=== PATIENT | female | born 1965 | race Caucasian/White ===

== ENCOUNTER 2016-11-21 22:29 | Emergency (ER) | payer OTHER ==
[2016-11-21 22:34] VITALS: BP 163/112; PULSE 106; TEMP 97.8; BMI 23.5
[2016-11-21] MEDS ORDERED: OXYCODONE/APAP 5/325MG COMBO TABLET PO ONE (23:00)
--- NOTE | 2016-11-21 23:01 | PDOC ---
[id number] No Limitations - History of Present Illness Initial Comments: 11/21/16 23:50 The patient is a 51 year old female, with a significant past medical history of hypertension and kidney stones, who presents to the emergency department complaining of left rib pain and left wrist pain s/p mechanical fall 2 days ago. The patient reports she returned from a trip to [place] yesterday. During her trip, she reports she was walking across a marble floor in her hotel, when she slipped and fell. The patient reports she landed on her front anterior left ribs. The patient complains of pain to the left wrist, but states her pain to the left wrist has improved since the fall. She reports the pain to the left anterior rib cage is worsening. She reports her left anterior rib cage pain is exacerbated with movement, deep inspiration, coughing, and sneezing. The patient states she has taken advil with no relief. The patient denies any fever , chills, cough, headache, or dizziness. The patient denies any chest pain, shortness of breath, palpitations, or diaphoresis. The patient denies any abdominal pain, nausea, vomiting, diarrhea, constipation, or changes in urination patterns. The patient denies any sick contacts. Allergies: None reported. Past Surgical History: Appendectomy Social History: Non-smoker. Denies alcohol or drug use. PCP: Dr. Herbert <Сергей Redding - Last Filed: 11/22/16 01:49> - General History Source: Patient <JustoLloyd macedo - Last Filed: 11/22/16 06:37> - General Chief Complaint: Bone Injury Stated Complaint: FALL,INJURY Time Seen by Provider: 11/21/16 22:55 Past History <Сергей Redding - Last Filed: 11/22/16 01:49> - Past Medical History HTN: Yes Kidney Stones: Yes - Surgical History Appendectomy: Yes - Immunization History Immunization Up to Date: Yes - Psycho/Social/Smoking Cessation Hx Suicidal Ideation: No Smoking Status: No Smoking History: Never smoked Have you smoked in the past 12 months: No Number of Cigarettes Smoked Daily: 0 Information on smoking cessation initiated: No Hx Alcohol Use: No Drug/Substance Use Hx: No Substance Use Type: None Hx Substance Use Treatment: No <Lloyd Ordonez - Last Filed: 11/22/16 06:37> - Past Medical History Allergies/Adverse Reactions: Allergies Allergy/AdvReac Type Severity Reaction Status Date / Time No Known Drug Allergies Allergy Verified 11/21/16 22:30 Home Medications: Ambulatory Orders Metoprolol Succinate [Toprol XL -] 100 mg PO DAILY 10/01/15 Amlodipine Besylate 5 mg PO DAILY 10/13/15 Ibuprofen [Motrin] 600 mg PO TID #30 tablet 11/22/16 Oxycodone HCl/Acetaminophen [Percocet 5-325 mg Tablet] 1 - 2 tab PO Q6H #20 tablet MDD 4 11/22/16 Review of Systems - Review of Systems Able to Perform ROS?: Yes Comments:: 11/21/16 23:51 CONSTITUTIONAL: Absent: fever, chills, diaphoresis, generalized weakness, malaise, loss of appetite HEENT: Absent: rhinorrhea, nasal congestion, throat pain, throat swelling, difficulty swallowing, mouth swelling, ear pain, eye pain, visual Changes CARDIOVASCULAR: Absent: chest pain, syncope, palpitations, irregular heart rate, lightheadedness , peripheral edema RESPIRATORY: Absent: cough, shortness of breath, dyspnea with exertion, orthopnea, wheezing, stridor, hemoptysis GASTROINTESTINAL: Absent: abdominal pain, abdominal distension, nausea, vomiting, diarrhea, constipation, melena, hematochezia GENITOURINARY: Absent: dysuria, frequency, urgency, hesitancy, hematuria, flank pain, genital pain MUSCULOSKELETAL: Present: +left wrist pain, +left anterior ribs pain Absent: myalgia, arthralgia, joint swelling SKIN: Absent: rash, itching, pallor HEMATOLOGIC/IMMUNOLOGIC: Absent: easy bleeding, easy bruising, lymphadenopathy, frequent infections ENDOCRINE: Absent: unexplained weight gain, unexplained weight loss, heat intolerance, cold intolerance NEUROLOGIC: Absent: headache, focal weakness or paresthesias, dizziness, unsteady gait, seizure, mental status changes, bladder or bowel incontinence PSYCHIATRIC: Absent: anxiety, depression, suicidal or homicidal ideation, hallucinations. <Сергей Redding - Last Filed: 11/22/16 01:49> *Physical Exam - Vital Signs Last Vital Signs Temp Pulse Resp BP Pulse Ox 97.8 F 106 H 16 163/112 95 11/21/16 22:31 11/21/16 22:31 11/21/16 22:31 11/21/16 22:31 11/21/16 22:31 - Physical Exam Comments: 11/21/16 23:54 GENERAL: Well developed, well nourished. Awake and alert. Mild distress. HEENT: Normocephalic, atraumatic. PERRLA, EOMI. No conjunctival pallor. Sclera are non- icteric. Moist mucous membranes. Oropharynx is clear. NECK: Supple. Full ROM. No JVD. Carotid pulses 2+ and symmetric, without bruits. No thyromegaly. No lymphadenopathy. CARDIOVASCULAR: Regular rate and rhythm. No murmurs, rubs, or gallops. Distal pulses are 2+ and symmetric. PULMONARY: No evidence of respiratory distress. Lungs clear to auscultation bilaterally. No wheezing, rales or rhonchi. ABDOMINAL: Soft. Non-tender. Non-distended. No rebound or guarding. No organomegaly. Normoactive bowel sounds. MUSCULOSKELETAL Normal range of motion at all joints. No CVA tenderness. Tenderness to palpation to the anterior left lower ribs (9-10), but no ecchymosis or swelling. No bony crepitus. No bony deformities. EXTREMITIES: No cyanosis. No clubbing. No edema. No calf tenderness. SKIN: Warm and dry. Normal capillary refill. No rashes. No jaundice. NEUROLOGICAL: Alert, awake, appropriate. Cranial nerves 2-12 intact. No deficits to light touch and temperature in face, upper extremities and lower extremities. No motor deficits in the in face, upper extremities and lower extremities. Normoreflexic in the upper and lower extremities. Normal speech. Toes are down- going bilaterally. Gait is normal without ataxia. PSYCHIATRIC: Cooperative. Good eye contact. Appropriate mood and affect. <Сергей Redding - Last Filed: 11/22/16 01:49> - Vital Signs Last Vital Signs Temp Pulse Resp BP Pulse Ox 97.8 F 106 H 16 163/112 95 11/21/16 22:31 11/21/16 22:31 11/21/16 22:31 11/21/16 22:31 11/21/16 22:31 <Lloyd Ordonez - Last Filed: 11/22/16 06:37> ED Treatment Course - Medications Given in the ED: ED Medications Discontinued Medications Generic Name Dose Route Start Last Admin Trade Name Michelle PRN Reason Stop Dose Admin Oxycodone/Acetaminophen 2 combo 11/21/16 23:00 11/21/16 23:30 Percocet 5/325 - PO 11/21/16 23:01 2 combo ONCE ONE Administration <Сергей Redding - Last Filed: 11/22/16 01:49> Medical Decision Making - Medical Decision Making 11/22/16 01:49 EXAM: X-RAY Chest and left ribs INTERPRETED BY: Dr. Antonio REVIEWED BY: Dr. Ordonez IMPRESSION: Acute fracture left lateral rib 7. Small subjacent radiolucency and thin curvilinear line, question artifact due to pleural thickening versus tiny focal pneumothorax. Consider correlation with chest CT. No pleural effusion or lung contusion. Cardiomediastinal silhouette unremarkable. Discoid atelectasis or scarring left mid and lower lung. <Сергей Redding - Last Filed: 11/22/16 01:49> - Medical Decision Making 11/22/16 01:35 Dr. Ordonez: The scribe's documentation has been prepared under my direction and personally reviewed by me in its entirery. I confirm that the note above accurately reflects all work, treatment, procedures, and medical decision making performed by me. No obvious rib fracture seen on rib series. X-ray sent to radiology stone planer for reevaluation. Regardless patient will be discharged with anti- inflammatories and analgesia. Advised to take good deep breath periodically to avoid any worsening respiratory problems 11/22/16 01:52 Radiology stone planer read xray as fracture to rib 7. pt contacted and made aware <Lloyd Ordonez - Last Filed: 11/22/16 06:37> *DC/Admit/Observation/Transfer - Attestations Scribe Attestion: 11/21/16 23:55 Documentation prepared by Сергей Redding, acting as medical surgery nurse for Lloyd Ordonez DO. <Сергей Redding - Last Filed: 11/22/16 01:49> - Discharge Dispostion Admit: No <Lloyd Ordonez - Last Filed: 11/22/16 06:37> Diagnosis at time of Disposition: Contusion of rib on left side Qualifiers: Encounter type: initial encounter Qualified Code(s): S20.212A - Contusion of left front wall of thorax, initial encounter Left rib fracture Qualifiers: Encounter type: initial encounter Rib fracture type: single rib Fracture type: closed Qualified Code(s): S22.32XA - Fracture of one rib, left side, initial encounter for closed fracture - Discharge Dispostion Disposition: HOME Condition at time of disposition: Stable - Prescriptions Prescriptions: Ibuprofen [Motrin] 600 mg PO TID #30 tablet Oxycodone HCl/Acetaminophen [Percocet 5-325 mg Tablet] 1 - 2 tab PO Q6H #20 tablet MDD 4 - Referrals Referrals: Osman Herbert [Primary Care Provider] - - Patient Instructions Printed Discharge Instructions: DI for Rib Contusion, DI for Rib Fracture Additional Instructions: take medications as directed. Periodically take deep breaths to avoid worsening of your breathing, and particularly developing pneumonia. Return if any, patient's.
[2016-11-21] MEDS ORDERED: OXYCODONE/APAP 5/325MG COMBO TABLET ONE (23:29)
== END 2016-11-22 01:37 | disposition home or self-care (01) ==
LOC: JER 22:29 → JERFT 22:29 → JER 11-22 01:37
DX: S22.32XA Fracture of one rib, left side, initial encounter for closed fracture (principal); S20.212A Contusion of left front wall of thorax, initial encounter; W01.0XXA Fall on same level from slipping, tripping and stumbling without subsequent striking against object, initial encounter; Y93.89 Activity, other specified; Y92.59 Other trade areas as the place of occurrence of the external cause; Y99.8 Other external cause status
CPT/HCPCS: 71101-TC; 99281-25

== ENCOUNTER 2016-11-22 17:26 | Emergency (ER) | payer OTHER ==
[2016-11-22 17:35] VITALS: BP 155/106; PULSE 82; TEMP 98; BMI 23.5
[2016-11-22] MEDS ORDERED: ONDANSETRON *ODT* 4 MG TABLET SL ONE (17:38)
[2016-11-22 18:27] LABS: URINE APPEARANCE CLEAR; URINE BILIRUBIN NEGATIVE (NEGATIVE); URINE COLOR COLORLESS; URINE GLUCOSE (UA) NEGATIVE (NEGATIVE); URINE KETONE NEGATIVE (NEGATIVE); URINE LEUK ESTERASE NEGATIVE (NEGATIVE); URINE NITRITE NEGATIVE (NEGATIVE); URINE PROTEIN NEGATIVE (NEGATIVE); URINE UROBILINOGEN NEGATIVE E.U./dl (0.2-1.0)
[2016-11-22 18:28] LABS: URINE BLOOD 1+ (NEGATIVE)
[2016-11-22] MEDS ORDERED: morphine CARPU-JECT 2 MG/1 ML DISP.SYRIN IM ONE (18:29)
--- NOTE | 2016-11-22 18:33 | PDOC ---
History of Present Illness - General Chief Complaint: Injury Stated Complaint: RIB INJURY/PAIN Time Seen by Provider: 11/22/16 17:29 History Source: Patient Exam Limitations: No Limitations - History of Present Illness Initial Comments: 11/22/16 18:28 Patient return visit from yesterday where she was diagnosed with a seventh rib fracture. slipped and fell 2 days ago while on vacation landing on her left elbow and impacting her left mid rib cage. Sustained a rib fracture that was diagnosed last night. Patient was prescribed Percocet and relief but patient states today has had a poor tolerance to those. States has vomited 3 times, and has severe pain to her left ribs. Denies fever, denies any shortness of breath, no other nausea vomiting diarrhea or constipation. who was also with patient is well. Occurred: reports: other (2 days ago ) Severity: reports: moderate, severe Pain Location: reports: chest Method of Injury: Yes: fall Modifying Factors: improves with: None, cold therapy, pain medication Loss of Consciousness: no loss of consciousness Associated Symptoms (Fall): denies symptoms Past History - Travel Traveled outside of the country in the last 30 days: No Close contact w/someone who was outside of country & ill: No - Past Medical History Allergies/Adverse Reactions: Allergies Allergy/AdvReac Type Severity Reaction Status Date / Time No Known Drug Allergies Allergy Verified 11/22/16 17:30 Home Medications: Ambulatory Orders Metoprolol Succinate [Toprol XL -] 100 mg PO DAILY 10/01/15 Amlodipine Besylate 5 mg PO DAILY 10/13/15 Ibuprofen [Motrin] 600 mg PO TID #30 tablet 11/22/16 Ondansetron [Zofran *Odt*] 4 mg SL PRN PRN #14 od.tablet 11/22/16 Oxycodone HCl/Acetaminophen [Percocet 5-325 mg Tablet] 1 - 2 tab PO Q6H #20 tablet MDD 4 11/22/16 HTN: Yes Kidney Stones: Yes - Surgical History Appendectomy: Yes - Immunization History Immunization Up to Date: Yes - Psycho/Social/Smoking Cessation Hx Suicidal Ideation: No Smoking Status: No Smoking History: Never smoked Have you smoked in the past 12 months: No Number of Cigarettes Smoked Daily: 0 Hx Alcohol Use: No Drug/Substance Use Hx: No Substance Use Type: None Hx Substance Use Treatment: No Review of Systems - Review of Systems Able to Perform ROS?: Yes Is the patient limited Occitan proficient: Yes Constitutional: Yes: Symptoms Reported, See HPI, Malaise. No: Fever, Loss of Appetite HEENTM: Yes: See HPI. No: Symptoms Reported Respiratory: Yes: See HPI, Other (difficult to take deep inspiration secondary to left). No: Symptoms reported, Cough Musculoskeletal: Yes: Symptoms Reported, See HPI, Muscle Pain All Other Systems: Reviewed and Negative *Physical Exam - Vital Signs Last Vital Signs Temp Pulse Resp BP Pulse Ox 98 F 82 19 155/106 96 11/22/16 17:30 11/22/16 17:30 11/22/16 17:30 11/22/16 17:30 11/22/16 17:30 - Physical Exam General Appearance: Yes: Nourished, Appropriately Dressed, Apparent Distress, Moderate Distress HEENT: positive: YASH, Normal ENT Inspection, TMs Normal, Pharynx Normal Neck: positive: Supple, Lymphadenopathy (R), Lymphadenopathy (L) Respiratory/Chest: positive: Lungs Clear. negative: Wheezing Musculoskeletal: positive: Normal Inspection Extremity: positive: Normal Capillary Refill, Normal Inspection, Normal Range of Motion Integumentary: positive: Normal Color, Swelling, Ecchymosis Neurologic: positive: driver courier II-XII NML intact, Fully Oriented, Alert, Normal Mood/ Affect, Normal Response, Motor Strength 5/5 ED Treatment Course - Medications Given in the ED: ED Medications Discontinued Medications Generic Name Dose Route Start Last Admin Trade Name Freq PRN Reason Stop Dose Admin Ondansetron HCl 4 mg 11/22/16 17:38 11/22/16 17:40 Zofran Odt - SL 11/22/16 17:39 4 mg ONCE ONE Administration Progress Note - Progress Note Progress Note: Patient nausea secondary to pain medication and pain. Will give shot of morphine here, prescribe Zofran for nauseousness and given new plan for pain management to add antinausea before administration of meds. *DC/Admit/Observation/Transfer Diagnosis at time of Disposition: Left rib fracture Qualifiers: Encounter type: subsequent encounter Rib fracture type: single rib Fracture type: closed Fracture healing: with routine healing Qualified Code(s): S22.32XD - Fracture of one rib, left side, subsequent encounter for fracture with routine healing - Discharge Dispostion Disposition: HOME Condition at time of disposition: Stable Admit: No - Patient Instructions Printed Discharge Instructions: DI for Rib Fracture Additional Instructions: Rest, ice to area on and off for 15 minutes 4-6 times a day Avoid heavy lifting or exercise until pain and swelling is resolved or until further directed Follow-up with PMD in one to 2 days if not improving, if significantly improved may wait one week for followup with private physician May use ibuprofen 2-200 mg tablets every 6 hours as needed for pain May use Percocet one half to 2 tablets every 4-6 hours for severe pain - Post Discharge Activity Work/School Note: Back to Work
[2016-11-22] MEDS ORDERED: morphine CARPU-JECT 2 MG/1 ML DISP.SYRIN ONE (18:35)
== END 2016-11-22 18:39 | disposition home or self-care (01) ==
LOC: JERFT 17:26
PROC: 3E023NZ Introduction of Analgesics, Hypnotics, Sedatives into Muscle, Percutaneous Approach (ICD-10-PCS; principal; 2016-11-22)
DX: R11.0 Nausea (principal); T40.2X5A Adverse effect of other opioids, initial encounter; S22.32XD Fracture of one rib, left side, subsequent encounter for fracture with routine healing; W19.XXXD Unspecified fall, subsequent encounter
CPT/HCPCS: 81003; 81015; 99281-25

== ENCOUNTER 2017-09-03 18:49 | Emergency (ER) | payer OTHER ==
[2017-09-03 18:56] VITALS: BP 131/67; PULSE 93; TEMP 98.1; BMI 23.5
[2017-09-03] MEDS ORDERED: DIPHTH,PERTUSS(ACELL),TET 0.5 ML DISP.SYRIN IM ONE (18:56)
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
== END 2017-09-03 19:57 | disposition home or self-care (01) ==
LOC: JERFT 18:49
PROC: 3E0234Z Introduction of Serum, Toxoid and Vaccine into Muscle, Percutaneous Approach (ICD-10-PCS; principal; 2017-09-03)
DX: M79.641 Pain in right hand (principal)
CPT/HCPCS: 90715; 99281-25

== ENCOUNTER 2018-10-25 12:20 | Emergency (ER) | payer OTHER ==
[2018-10-25 12:48] VITALS: BP 162/111; PULSE 73; TEMP 98.7; BMI 24.3
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
--- NOTE | 2018-10-26 11:01 | EKG ---
Test Reason : Blood Pressure : / mmHG Vent. Rate : 069 BPM Atrial Rate : 069 BPM P-R Int : 142 ms QRS Dur : 084 ms QT Int : 414 ms P-R-T Axes : 057 032 030 degrees QTc Int : 443 ms NORMAL SINUS RHYTHM POSSIBLE LEFT ATRIAL ENLARGEMENT NONSPECIFIC ST ABNORMALITY ABNORMAL ECG WHEN COMPARED WITH ECG OF 11-FEB-2008 13:01, NO SIGNIFICANT CHANGE WAS FOUND Confirmed by AMIRAH HARRIS, ADAM ([id number]) on 10/26/2018 11:01:05 AM Referred By: JUAN CARLOS CASTELLANOS Confirmed By:ADAM MACARIO MD
== END 2018-10-25 14:51 | disposition home or self-care (01) ==
LOC: FER 12:20
DX: R41.3 Other amnesia (principal); I10 Essential (primary) hypertension; F41.8 Other specified anxiety disorders
CPT/HCPCS: 70450-TC; 93005; 99281-25

== ENCOUNTER 2018-11-10 06:09 | Emergency (ER) | payer OTHER ==
--- NOTE | 2018-11-10 06:19 | PDOC ---
History of Present Illness - General Chief Complaint: Blood Pressure Problem Stated Complaint: HIGH BLOOD PRESSURE Time Seen by Provider: 11/10/18 06:12 History Source: Patient Exam Limitations: No Limitations - History of Present Illness Initial Comments: 11/10/18 06:40 This is a 53-year-old female with history of hypertension who comes in complaining of elevated blood pressure. Patient said she ran out of her medication approximately 2 weeks ago and did go to an urgent care center and got some more of one of her medications but not the other one. Patient said she does take both atenolol and metoprolol. Patient otherwise denies any complaints. Patient is somewhat anxious here in the emergency room because of her elevated blood pressure. Patient denies any headache, neck pain, nausea, chest pain, shortness of breath or any other complaints. Allergies: None Past Medical History: none Social history: Lives with family. No smoking. No alcohol. No illicit drugs. Surgical history: None General: No fevers or chills, no weakness, no weight loss HEENT: No change in vision. No sore throat,. No ear pain CardioVascular: no chest discomfort. No shortness of breath Respiratory:No cough, or wheezing. Gastrointestinal: no nausea, vomiting, diarrhea or constipation, No rectal bleeding Genitourinary: No dysuria, hematuria, or frequency Musculoskeletal: No joint or muscle pain or swelling Neurologic: No headache, vertigo, dizziness or loss of consciousness Psychiatric: nor depression Skin: No rashes or easy bruising Endocrine: no increased thirst or abnormal weight change Allergic: no skin or latex allergy All other systems reviewed and normal Exam: General: Well-nourished well-developed individual, no acute distress HEENT: Throat: Normal, tonsils normal, no erythema or exudate Neck: Supple, no meningeal signs, no lymphadenopathy Eyes::Pupils equal reactive and round, extraocular motion intact Chest: Nontender to palpation Cardiac: S1-S2 normal, regular rate and rhythm, no murmurs rubs or gallops Respiratory: Lungs clear to auscultation bilateral Abdomen: Soft, nondistended, normal bowel sounds, there is no tenderness on palpation diffusely Extremities: Warm, dry, no cyanosis, clubbing, or edema Skin: No rashes Neuro: Alert and oriented x3, CN II - XII intact, nonfocal exam with normal strength, normal sensation, normal reflexes, normal gait, Psych: Normal mood and affect Assessment plan: This 53-year-old female with elevated blood pressure. Patient took her usual medication of metoprolol I also started her on losartan with hydrochlorothiazide. Prescriptions for both of metoprolol and losartan were sent to her pharmacy. Patient does not have a primary care doctor this time but says she will find one and get an appointment to follow-up before her medications run out. Past History - Past Medical History Allergies/Adverse Reactions: Allergies Allergy/AdvReac Type Severity Reaction Status Date / Time No Known Drug Allergies Allergy Verified 11/10/18 06:10 Home Medications: Ambulatory Orders Metoprolol Succinate [Toprol XL -] 100 mg PO DAILY 10/01/15 Fluoxetine HCl [Prozac] 40 mg PO DAILY 10/25/18 LORazepam [Ativan] 0.5 mg PO BID PRN 10/25/18 Losartan Potassium 50 mg PO DAILY #30 tablet 11/10/18 Metoprolol/Hydrochlorothiazide [Metoprolol-Hctz 100-25 mg Tab] 1 each PO DAILY # 30 tablet 11/10/18 Zolpidem Tartrate [Ambien] 5 mg PO HS 11/10/18 COPD: No HTN: Yes Kidney Stones: Yes Psychiatric Problems: Yes (DEPRESSION AND ANXIETY) Seizures: Yes (ONCE 20 YEARS AGO. WORK UP WAS NEGATIVE.) - Surgical History Appendectomy: Yes - Immunization History Immunization Up to Date: Yes - Suicide/Smoking/Psychosocial Hx Smoking Status: No Smoking History: Current some day smoker Have you smoked in the past 12 months: Yes Number of Cigarettes Smoked Daily: 1 Hx Alcohol Use: Yes Drug/Substance Use Hx: No Substance Use Type: None Hx Substance Use Treatment: No *DC/Admit/Observation/Transfer Diagnosis at time of Disposition: Essential hypertension - Discharge Dispostion Disposition: HOME Condition at time of disposition: Stable Decision to Admit order: No - Prescriptions Prescriptions: Losartan Potassium 50 mg PO DAILY #30 tablet Metoprolol/Hydrochlorothiazide [Metoprolol-Hctz 100-25 mg Tab] 1 each PO DAILY # 30 tablet - Referrals - Patient Instructions Additional Instructions: Go to the pharmacy and cigar packer and picker her prescriptions for losartan and metoprolol. Work on getting a primary care physician this week so that when you get back from [place] [facility] will have an appointment for somebody before the prescriptions run out. Return to the emergency department immediately with ANY new, persistent or worsening symptoms. Continue any medications as previously prescribed by your physician. You should follow up with your primary doctor as soon as possible regarding today's emergency department visit. . Please make sure your doctor reviews the results of your emergency evaluation. Thank you for coming to the Emergency Department today for your care. It was a pleasure to see you today. Please note that your evaluation is INCOMPLETE until you follow-up with your doctor. - Post Discharge Activity
[2018-11-10 06:21] VITALS: PULSE 71; TEMP 98.3; BMI 24.3
[2018-11-10] MEDS ORDERED: LOSARTAN POTASSIUM 50 MG TABLET (FP) PO ONE (06:21)
[2018-11-10 07:22] VITALS: BP 169/97
== END 2018-11-10 07:22 | disposition home or self-care (01) ==
LOC: FER 06:09
DX: I10 Essential (primary) hypertension (principal); F41.8 Other specified anxiety disorders; R56.9 Unspecified convulsions; F17.210 Nicotine dependence, cigarettes, uncomplicated
CPT/HCPCS: 99281-25

== ENCOUNTER 2019-02-02 02:13 | Emergency (ER) | payer OTHER ==
[2019-02-02 02:27] VITALS: BMI 25.0
[2019-02-02 03:06] LABS: HEMATOCRIT 38.2 % (32.4-45.2); MCH 33.9 pg (25.7-33.7); MCHC 33.9 g/dl (32.0-36.0); MEAN CELL VOLUME 99.9 fl (80-96); MEAN PLT VOLUME 9.3 fl (7.5-11.1); PLATELET COUNT 231 K/MM3 (134-434); RBC 3.82 M/mm3 (3.60-5.2); RDW 12.8 % (11.6-15.6); WHITE BLOOD COUNT 9.4 K/mm3 (4.0-10.0)
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
[2019-02-02] MEDS ORDERED: LORazepam 2 MG/ML SDV VIAL ONE (03:49)
[2019-02-02 03:50] LABS: ALK PHOS 91 U/L (45-117); ANION GAP 5 MMOL/L (8-16); BILIRUBIN,TOTAL 0.4 mg/dL (0.2-1); BLOOD UREA NITROGEN 15 mg/dL (7-18); CALCIUM 9.5 mg/dL (8.5-10.1); CHLORIDE 103 mmol/L (98-107); CO2 27 mmol/L (21-32); CREATININE 0.7 mg/dL (0.55-1.3); GLUCOSE,RANDOM 104 mg/dL (74-106); SGOT/AST 36 U/L (15-37); SGPT/ALT 26 U/L (13-61); SODIUM 135 mmol/L (136-145)
[2019-02-02 03:56] LABS: POTASSIUM 4.1 mmol/L (3.5-5.1)
--- NOTE | 2019-02-02 07:31 | PDOC ---
*Physical Exam - Vital Signs Last Vital Signs Temp Pulse Resp BP Pulse Ox 97.7 F 86 18 137/94 98 02/02/19 02:13 02/02/19 06:44 02/02/19 06:44 02/02/19 06:44 02/02/19 06:44 ED Treatment Course - LABORATORY CBC & Chemistry Diagram: 02/02/19 02:50 02/02/19 02:50 - ADDITIONAL ORDERS Additional order review: Laboratory Results 02/02/19 02/02/19 02/02/19 02:50 02:50 02:47 Sodium 135 L Potassium 4.1 Chloride 103 Carbon Dioxide 27 Anion Gap 5 L BUN 15 Creatinine 0.7 Creat Clearance w eGFR 87.53 POC Glucometer 117 Random Glucose 104 Calcium 9.5 Total Bilirubin 0.4 AST 36 ALT 26 Alkaline Phosphatase 91 Total Protein 7.0 Albumin 4.0 Alcohol, Quantitative < 3.0 02/02/19 02/02/19 02:50 02:47 RBC 3.82 MCV 99.9 H MCHC 33.9 RDW 12.8 MPV 9.3 POC Glucometer 117 - Medications Given in the ED: ED Medications Discontinued Medications Generic Name Dose Route Start Last Admin Trade Name Freq PRN Reason Stop Dose Admin Lorazepam 1 mg 02/02/19 03:49 02/02/19 03:54 Ativan Injection - IVPUSH 02/02/19 03:50 1 mg ONCE ONE Administration Medical Decision Making - Medical Decision Making 02/02/19 07:24 Pt's arrived at bedside. Reports the pt seems to be at baseline. Was unaware she had left the house overnight. States she "may have had " a similar episode after taking Ambien. She reports taking the medication last night. Does not usually take it. Pt re-examined and found to be A/O x4. Breathing unlabored. Upper extremities tremulous at rest. Able to ambulate unassisted without difficulty. Suspect episode may have been secondary to Ambien versus transient global amnesia. Will provide PCP and neurology referral. Strict return precautions provided. *DC/Admit/Observation/Transfer Diagnosis at time of Disposition: Transient global amnesia - Discharge Dispostion Disposition: HOME Condition at time of disposition: Fair Decision to Admit order: No - Referrals Referrals: [facility] [place] [facility] at [place] [Provider Group] Serenity Tristan MD [Staff Physician] - - Patient Instructions Printed Discharge Instructions: DI for Transient Global Amnesia Additional Instructions: You were seen today after being found disoriented overnight. Your labs and imaging were normal today. Stop taking the Ambien until you have been further advised by your primary care doctor. Please follow up with a primary care physician within the next week. I have placed a referral for you to see the [facility] [place] [facility] Internal Medicine clinic at [place]. You will need to call to make an appointment. The number is [phone]. The address is as follows: [address] [place] [address] You should also follow up with a neurologist. I have also placed a referral for you to see Dr. Tristan. You will need to call to make an appointment. The number is included in this packet. Go to the nearest emergency department if your condition worsens or you feel like you need additional emergency evaluation. Print Language: BENGALI - Post Discharge Activity Forms/Work/School Notes: Back to Work
[2019-02-02 07:47] VITALS: BP 117/78; PULSE 87; TEMP 98
[2019-02-02 08:05] LABS: COCAINE, UR NEGATIVE ng/ml (CUTOFF=300); METHADONE, UR NEGATIVE ng/ml (CUTOFF=300); OPIATES, URI NEGATIVE ng/ml (CUTOFF=300); PHENCYCLIDINE,URINE NEGATIVE ng/ml (CUTOFF=25); URINE AMPHETAMINES NEGATIVE ng/ml (CUTOFF=500); URINE BARBITURATES NEGATIVE ng/ml (CUTOFF=200); URINE BENZODIAZEPINES NEGATIVE ng/ml (CUTOFF=200)
== END 2019-02-02 08:00 | disposition home or self-care (01) ==
LOC: JER 02:13
PROC: 3E033NZ Introduction of Analgesics, Hypnotics, Sedatives into Peripheral Vein, Percutaneous Approach (ICD-10-PCS; principal; 2019-02-02)
DX: G45.4 Transient global amnesia (principal); I10 Essential (primary) hypertension; F41.8 Other specified anxiety disorders; F32.9 Major depressive disorder, single episode, unspecified; Z87.442 Personal history of urinary calculi
CPT/HCPCS: 36415; 70450-TC; 80053; 80307; 82962; 85027; 99282-25

== ENCOUNTER 2019-06-16 11:55 | Emergency (ER) | payer OTHER ==
[2019-06-16 12:19] VITALS: BP 152/95; PULSE 76; TEMP 98.8; BMI 24.3
--- NOTE | 2019-06-16 12:25 | PDOC ---
History of Present Illness - General Chief Complaint: Injury Stated Complaint: RIB PAIN Time Seen by Provider: 06/16/19 12:08 - History of Present Illness Initial Comments: 06/16/19 15:19 Chief complaint: Rib pain History of present illness: Fell on the stairs approximately 10 days ago. Impacted left anterolateral chest, lower rib cage. Persistent pain especially with deep inspiration, but no shortness of breath, cough, or fever. Review of systems otherwise negative Past medical history mild hypertension, elevated cholesterol Social/family history reviewed and noncontributory Physical exam: Alert and oriented well-developed well-nourished no acute distress. Normal respirations, no tachypnea or dyspnea Afebrile, vital signs normal Lungs clear to P&A, full breath sounds bilaterally, no appreciable splinting No deformity or crepitus of the chest wall, but mild tenderness over the lower anterolateral ribs. Impression: Rib contusion rule out fracture Plan: X-rays negative. No significant intrathoracic injury. Rest, Advil or Aleve , and follow-up primary physician. Past History - Past Medical History Allergies/Adverse Reactions: Allergies Allergy/AdvReac Type Severity Reaction Status Date / Time No Known Drug Allergies Allergy Verified 06/16/19 12:10 Home Medications: Ambulatory Orders Metoprolol Succinate [Toprol XL -] 100 mg PO DAILY 10/01/15 Amlodipine Besylate 10 mg PO DAILY 06/16/19 Fluoxetine HCl [Prozac] 20 mg PO DAILY 06/16/19 Multivit,Calc,Mins/Iron/Folic [One-A-Day Women's] 1 each PO DAILY 06/16/19 Rosuvastatin Calcium [Crestor] 5 mg PO DAILY 06/16/19 COPD: No HTN: Yes Kidney Stones: Yes Psychiatric Problems: Yes (DEPRESSION AND ANXIETY) Seizures: Yes (ONCE 20 YEARS AGO. WORK UP WAS NEGATIVE.) - Surgical History Appendectomy: Yes - Immunization History Immunization Up to Date: Yes - Suicide/Smoking/Psychosocial Hx Smoking Status: No Smoking History: Current every day smoker Have you smoked in the past 12 months: Yes Number of Cigarettes Smoked Daily: 5 Information on smoking cessation initiated: Yes Hx Alcohol Use: Yes (OCCASIONAL) Drug/Substance Use Hx: No Substance Use Type: None Hx Substance Use Treatment: No *Physical Exam - Vital Signs Last Vital Signs Temp Pulse Resp BP Pulse Ox 98.8 F 76 16 152/95 97 06/16/19 12:04 06/16/19 12:04 06/16/19 12:04 06/16/19 12:04 06/16/19 12:04 *DC/Admit/Observation/Transfer Diagnosis at time of Disposition: Contusion of rib on left side Qualifiers: Encounter type: initial encounter Qualified Code(s): S20.212A - Contusion of left front wall of thorax, initial encounter - Discharge Dispostion Disposition: HOME Condition at time of disposition: Stable Decision to Admit order: No - Referrals - Patient Instructions Printed Discharge Instructions: DI for Rib Contusion - Post Discharge Activity
== END 2019-06-16 13:05 | disposition home or self-care (01) ==
LOC: FER 11:55
DX: S20.212A Contusion of left front wall of thorax, initial encounter (principal); I10 Essential (primary) hypertension; E78.00 Pure hypercholesterolemia, unspecified; F17.210 Nicotine dependence, cigarettes, uncomplicated; Z86.69 Personal history of other diseases of the nervous system and sense organs; Z87.442 Personal history of urinary calculi; W10.9XXA Fall (on) (from) unspecified stairs and steps, initial encounter; Y93.9 Activity, unspecified; Y92.9 Unspecified place or not applicable
CPT/HCPCS: 71101-TC-LT-FY; 99281-25